=== PATIENT | male | born 1950 | race Caucasian/White ===

== ENCOUNTER 2021-09-15 12:57 | Day surgery (SDC) | payer MEDICARE, OTHER ==
[~2021-09-15] VITALS: Ht 182.9 cm; Wt 104.5 kg
[~2021-09-15 12:57] MED LIST: ASPIRIN81 MG PO; LIPITOR20 MG PO; METOPROLOL SUCC25 MG PO; NORVASC5 MG PO
--- NOTE | 2021-09-15 15:46 | NUR ---
09/15/21 1546 Hanny Beck 1543- PT ARRIVES TO PACU AWAKE AND TALKING. PT REPORTS NO PAIN OR NAUSEA. RESP EVEN AND UNLABORED. OXYGEN SAT HIGH 90'S TO 100% ON 2L VIA NC.
--- NOTE | 2021-09-16 18:19 | OR ---
[facility] [address], [place] [address] Signed DATE OF OPERATION: 09/15/2021 SURGEON: Vik Mccoy MD PREOPERATIVE DIAGNOSIS: Colon screening. POSTOPERATIVE DIAGNOSIS: Small polyp of cecum (excised). PROCEDURE: Total colonoscopy to cecum with cold morcellation polypectomy x1. ANESTHESIA: Intravenous sedation fentanyl 100 mcg and Versed 7 mg. INDICATIONS: This 71-year-old white man is from [place], [place] and was referred by a local provider in [place], [place] from [facility] (Dr. Rodriguez) for screening colonoscopy. He last underwent colonoscopy in [place], [place] 10-1/2 years ago which was said to be negative. He has no current symptoms of bleeding, diarrhea, or constipation. He has no family history of colon cancer. He is admitted to undergo screening colonoscopy. He understands the risks of bleeding, infection, and perforation. FINDINGS: The prep was excellent. Complete colonoscopy was undertaken of the cecum without question. He had one small polyp of the cecum, which was excised with cold morcellation technique. The remaining colon was normal. DESCRIPTION OF PROCEDURE: The patient was brought to the endoscopy suite and placed in lateral decubitus position. Given intravenous sedation to the point of slurred speech and nystagmus. Digital rectal examination was normal including a normal prostate. An Olympus video colonoscope was passed in the rectum and manipulated throughout the colon ultimately intubating the cecum itself. Irrigation was undertaken. The appendiceal orifice was well identified. A small polyp was noted on one of the folds of the cecum. This was excised with cold morcellation technique completely. The scope was withdrawn and examination throughout showed no sign of other abnormality, specifically no other polyps, diverticula, colitis, or cancer. Retroflexed view showed some internal hemorrhoidal changes, but nothing of Electronically Signed By: VIK MCCOY MD 09/16/21 1819 PATIENT NAME: CIARAN LATHAM OPERATIVE REPORT DATE OF : 54 REPORT #: [id number] PHYSICIAN: VIK MCCOY MD PCP: NO PRIMARY CARE PHYSICIAN REPORT IS CONFIDENTIAL AND NOT TO BE RELEASED WITHOUT AUTHORIZATION [facility] [address], [place] [address] Signed concern. The patient was taken to recovery room in good condition having suffered no known complications. CONCLUDING DIAGNOSIS: Small polyp of cecum. PLAN: Recommend repeat colonoscopy in 5-7 years or sooner if clinically indicated. He will return to the ongoing care of primary care provider of his choice in [place] as needed. MD MARIVEL Church/MODL /[id number] cc: [place], [place] Copies: ~ Electronically Signed By: VIK MCCOY MD 09/16/21 1819 PATIENT NAME: CIARAN LATHAM OPERATIVE REPORT DATE OF : 54 REPORT #: [id number] PHYSICIAN: VIK MCCOY MD PCP: NO PRIMARY CARE PHYSICIAN REPORT IS CONFIDENTIAL AND NOT TO BE RELEASED WITHOUT AUTHORIZATION
--- NOTE | 2021-09-17 11:35 | PATH ---
[facility] [address] [place], [place] [address] Signed SPECIMEN(S): A CECUM POLYP SPECIMEN SOURCE: A. CECUM POLYP CLINICAL HISTORY: Screening colonoscopy. Polyp of cecum. FINAL PATHOLOGIC DIAGNOSIS: Cecum, polypectomy: - Colonic mucosa with a prominent lymphoid aggregate. BRP:cml:C2NR MICROSCOPIC EXAMINATION: Histologic sections of all submitted blocks are examined by light microscopy. These findings, together with the gross examination, support the pathologic diagnosis. GROSS DESCRIPTION: The specimen, labeled "SJ, 1," and designated on the requisition "cecum polyp," is received in formalin and consists of five ojeda soft tissue fragments that measure 0.1-0.3 cm in greatest dimension. The specimen is entirely submitted in cassette (A1). AT (under the direct supervision of a pathologist) The Gross Description was prepared using a voice recognition system. The report was reviewed for accuracy; however, sound-alike word errors, addition and/or deletions may occur. If there is any question about this report, please contact Client Services. PERFORMING LABORATORY: The technical component was performed by [facility], [address] [place] [id number] (Developmental Therapist: Dalila Haider MD; CLIA# [id number]). [facility] [address] [address] (CLIA# [id number]). Diagnostician: Evan Brennan MD Pathologist Electronically Signed 09/17/2021 PATIENT NAME: CIARAN LATHAM PATHOLOGY DATE OF : 54 REPORT #: [id number] PHYSICIAN: [facility] PATH[facility] PCP: NO PRIMARY CARE PHYSICIAN REPORT IS CONFIDENTIAL AND NOT TO BE RELEASED WITHOUT AUTHORIZATION [address] [place], [place] [address] Signed Copies: ~ PATIENT NAME: CIARAN LATHAM PATHOLOGY DATE OF : 54 REPORT #: [id number] PHYSICIAN: [facility] PATHOLOG[facility] PCP: NO PRIMARY CARE PHYSICIAN REPORT IS CONFIDENTIAL AND NOT TO BE RELEASED WITHOUT AUTHORIZATION
== END 2021-09-15 16:12 | disposition home or self-care (01) ==
LOC: OPS 12:57 → DS 13:02 → OPS 14:00
PROVIDERS: ATTEND Surgery
PROC: 0DBH8ZX Excision of Cecum, Via Natural or Artificial Opening Endoscopic, Diagnostic (ICD-10-PCS; principal; 2021-09-15 14:00)
DX: Z12.11 Encounter for screening for malignant neoplasm of colon (principal); K63.5 Polyp of colon; I10 Essential (primary) hypertension; E78.5 Hyperlipidemia, unspecified; H40.9 Unspecified glaucoma; Z98.890 Other specified postprocedural states
CPT/HCPCS: 99153; G0500; J2250; J3010